=== PATIENT | male | born 1960 | race Caucasian/White ===

== ENCOUNTER 2020-10-22 10:41 | Outpatient (REF) | payer OTHER, SELFPAY ==
[2020-10-22 10:59] LABS: MANUAL DIFF FLAG NO
[2020-10-22 11:02] LABS: Glucose Urine UA NEG (NEG); Leukocyte Esterase Urine NEG (NEG); Nitrite Urine NEG (NEG); Urine Blood NEG (NEG); Urine Ketones NEG (NEG); Urine Protein NEG (NEG-TRACE)
[2020-10-22 11:02] LABS: Basophils Percent Auto 0.7 % (0-2); Eosinophils Absolute Auto 0.1 X10*3/uL (0.0-0.4); Eosinophils Percent Auto 2.4 % (0-4); Hematocrit 43.1 % (42-52); Hemoglobin 15.3 g/dl (14.0-18.0); Imm Gran Abs Auto 0.01 X10*3/uL (0.00-0.03); Imm Gran Pct Auto 0.2 % (0.0-0.4); Lymphocytes Absolute Auto 1.7 X10*3/uL (1.2-4.9); Mean Corpuscular HGB Conc 35.5 g/dl (31.0-36.0); Mean Corpuscular Hemoglobin 31.2 pg (27.0-33.0); Mean Platelet Volume 10.1 fL (9.4-12.4); Monocytes Absolute Auto 0.3 X10*3/uL (0.1-1.2); Monocytes Percent Auto 6.6 % (2-11); Neutrophils Absolute Auto 2.1 X10*3/uL (2.0-8.3); Neutrophils Percent Auto 50.1 % (45-73); Platelet Count 218 X10*3/uL (160-400); Red Cell Distribution Width 12.7 % (11.0-16.0); White Blood Count 4.1 X10*3/uL (4.8-10.8)
[2020-10-22 11:05] LABS: Appearance Urine CLEAR; Color Urine YELLOW
[2020-10-22 11:31] LABS: Alanine Aminotransferase 34 U/L (0-40); Albumin Level 4.2 g/dL (3.5-5.0); Alkaline Phosphatase 62 U/L (39-117); Anion Gap 12 (12-20); Aspartate Amino Transferase 27 U/L (5-37); Bilirubin Total 0.8 mg/dL (0.0-1.0); Blood Urea Nitrogen 20 mg/dL (9-16); Calcium 9.2 mg/dL (8.4-10.2); Carbon Dioxide 27 mmol/L (22-29); Chloride 106 mmol/L (96-108); Cholesterol 166 mg/dL; Estimated Glomerular Filt Rate 60; Glucose Random 105 mg/dL (60-115); HDL Cholesterol 43 mg/dL; LDL Cholesterol Calculated 95 mg/dl; Potassium 4.6 mmol/L (3.3-5.1); Sodium 140 mmol/L (135-145); Total Protein 6.4 g/dL (6.5-8.0); Triglycerides 143 mg/dL
[2020-10-22 11:56] LABS: Prostate Specific Antigen 0.84 ng/mL (<0.05-4.0)
== END 2020-10-22 10:42 | disposition home or self-care (01) ==
LOC: HO.LAB 10:41
PROVIDERS: PCP Internal Medicine; Visit Provider Internal Medicine
DX: Z00.00 Encounter for general adult medical examination without abnormal findings (principal); Z12.5 Encounter for screening for malignant neoplasm of prostate
CPT/HCPCS: 36415; 80053; 80061; 81003; 84153; 85025

== ENCOUNTER 2022-10-05 13:19 | Outpatient (REF) | payer OTHER, SELFPAY ==
--- NOTE | ~2022-10-05 | XR_ITS ---
EXAMINATION: XR LUMBOSACRAL SPINE CLINICAL INFORMATION: Pain COMPARISON: None available. TECHNIQUE: Three views of the lumbosacral spine. FINDINGS: There is mild 3 mm anterior subluxation of L4 with respect L5. There is mild anterior subluxation of L3 with respect to L2 measuring 3 mm. No fracture or dislocation. Disc space narrowing at L4-L5 and L5-S1. Mild degenerative spondylosis at L1-L2 and L2-L3. Lower lumbar spine facet arthritis. XR/XR lumbar spine 2-3V IMPRESSION: Degenerative changes.
--- NOTE | ~2022-10-05 | XR_ITS ---
EXAMINATION: Bilateral hand x-ray CLINICAL INFORMATION: Pain COMPARISON: Previous x-ray October 2017 TECHNIQUE: 3 views of each hand FINDINGS: Left: Bone alignment is normal. No fracture or dislocation. There is arthritis at the first HALF-WAY joint with joint space narrowing and osteophyte formation. There is arthritis at the IP joints, greatest DIP joint of the second finger and PIP joint of the fifth finger. Soft tissues are unremarkable. Right: Bone alignment is normal. No fracture or dislocation. There is mild osteoarthritis at the first HALF-WAY joint with joint space narrowing and osteophyte formation. There is mild osteoarthritis at the IP joints, greatest the DIP joint of the second and fifth fingers. Soft tissues are unremarkable. XR/XR hand LT min 3V IMPRESSION: Bilateral osteoarthritis.
--- NOTE | ~2022-10-05 | XR_ITS ---
EXAMINATION: Bilateral hand x-ray CLINICAL INFORMATION: Pain COMPARISON: Previous x-ray October 2017 TECHNIQUE: 3 views of each hand FINDINGS: Left: Bone alignment is normal. No fracture or dislocation. There is arthritis at the first RETIREMENT joint with joint space narrowing and osteophyte formation. There is arthritis at the IP joints, greatest DIP joint of the second finger and PIP joint of the fifth finger. Soft tissues are unremarkable. Right: Bone alignment is normal. No fracture or dislocation. There is mild osteoarthritis at the first RETIREMENT joint with joint space narrowing and osteophyte formation. There is mild osteoarthritis at the IP joints, greatest the DIP joint of the second and fifth fingers. Soft tissues are unremarkable. XR/XR hand RT min 3V IMPRESSION: Bilateral osteoarthritis.
== END 2022-10-05 13:20 | disposition home or self-care (01) ==
LOC: HO.XRAY 13:19
PROVIDERS: PCP Internal Medicine; Visit Provider Internal Medicine
DX: R60.0 Localized edema (principal); M54.9 Dorsalgia, unspecified; M79.641 Pain in right hand; M79.642 Pain in left hand
CPT/HCPCS: 72100; 73130

== ENCOUNTER 2022-10-06 10:33 | Outpatient (REF) | payer OTHER, SELFPAY ==
[2022-10-06 10:47] LABS: MANUAL DIFF FLAG NO
[2022-10-06 10:58] LABS: Basophils Percent Auto 0.5 % (0-2); Eosinophils Absolute Auto 0.1 X10*3/uL (0.0-0.4); Eosinophils Percent Auto 1.4 % (0-4); Hemoglobin 15.9 g/dl (14.0-18.0); Imm Gran Abs Auto 0.02 X10*3/uL (0.00-0.03); Imm Gran Pct Auto 0.5 % (0.0-0.4); Lymphocytes Absolute Auto 1.6 X10*3/uL (1.2-4.9); Lymphocytes Percent Auto 36.7 % (20-40); Mean Corpuscular HGB Conc 34.6 g/dl (31.0-36.0); Mean Corpuscular Hemoglobin 30.8 pg (27.0-33.0); Mean Platelet Volume 10.5 fL (9.4-12.4); Monocytes Absolute Auto 0.4 X10*3/uL (0.1-1.2); Monocytes Percent Auto 8.1 % (2-11); Neutrophils Absolute Auto 2.3 x10*3/uL (2.0-8.3); Neutrophils Percent Auto 52.8 % (45-73); Platelet Count 224 X10*3/uL (160-400); Red Blood Count 5.17 X10*6/uL (4.60-5.80); Red Cell Distribution Width 13.1 % (11.0-16.0); White Blood Count 4.3 X10*3/uL (4.8-10.8)
[2022-10-06 11:43] LABS: Erythrocyte Sedimentation Rate 2 MM/HR (0-15)
[2022-10-06 11:49] LABS: Alanine Aminotransferase 41 U/L (0-40); Albumin Level 4.3 g/dL (3.5-5.0); Alkaline Phosphatase 64 U/L (39-117); Anion Gap 14 (12-20); Aspartate Amino Transferase 29 U/L (5-37); Bilirubin Total 1.1 mg/dL (0.0-1.0); Blood Urea Nitrogen 19 mg/dL (9-16); C Reactive Protein 0.17 mg/dL (< or = 0.50); Calcium 9.7 mg/dL (8.4-10.2); Carbon Dioxide 27 mmol/L (22-29); Chloride 105 mmol/L (96-108); Cholesterol 169 mg/dL; Estimated Glomerular Filt Rate > 60; Glucose Random 105 mg/dL (60-115); HDL Cholesterol 38 mg/dL; LDL Cholesterol Calculated 102 mg/dl; Potassium 4.9 mmol/L (3.3-5.1); Rheumatoid Factor < 13.0 IU/mL (<15.0); Sodium 141 mmol/L (135-145); Total Protein 6.5 g/dL (6.5-8.0); Triglycerides 149 mg/dL
[2022-10-06 12:01] LABS: Thyroid Stimulating Hormone 1.06 uIU/mL (0.32-4.0)
[2022-10-09 15:53] LABS: Anti Nuclear Antibody Screen NEGATIVE (NEGATIVE)
== END 2022-10-06 10:34 | disposition home or self-care (01) ==
LOC: HO.LAB 10:33
PROVIDERS: PCP Internal Medicine; Visit Provider Internal Medicine
DX: Z00.00 Encounter for general adult medical examination without abnormal findings (principal); Z12.5 Encounter for screening for malignant neoplasm of prostate; M79.642 Pain in left hand; M79.641 Pain in right hand; R60.0 Localized edema; M54.9 Dorsalgia, unspecified
CPT/HCPCS: 36415; 80053; 80061; 84153; 84443; 85025; 85652; 86038; 86140; 86431

== ENCOUNTER 2022-12-14 12:07 | Outpatient (AMB) | payer OTHER, SELFPAY ==
--- NOTE | 2022-12-14 12:29 | A.OFFVIS_ITS ---
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 Left hand is worse.States numbness present for about 5 yrs and has worsen over time. Numbness comes and goes depending on his activity. Has pain in his joints and is not able to make a fist. Takes Alleve with no relief. Left hand pain by his CMC joint and has pain with thumb movement. States no prior treatment. EMG done years ago. 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 He complains of numbness in the thumb, index, and middle fingers of his hands. Symptoms intermittent, but daily, worse primarily with activity. He says this has been worsening over the last ~5 years. He complains of pain in all the joints of his fingers, and the base of his left thumb. He says he is not able to make a fist due to his pain. He has increased pain with movement of his left thumb. He says he had a NCS done in the past, but it was several years ago and he does not have a copy. 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/ [employer] Review of Systems Const All systems reviewed & are unremarkable except as noted in HPI and below Physical Exam Vital Signs: BMI result Body Mass Index 35.6 Const General: cooperative, healthy appearing and no acute distress Orientation/consciousness: patient oriented x3 HEENT Head: Yes normocephalic and Yes atraumatic Eyes EOM: EOMs intact bilaterally Resp Effort & Inspection: normal respiratory effort and able to speak in complete sentences Cardio Jugular venous distension: no JVD Skin General skin exam: turgor normal Rashes: no rashes Neuro General: patient oriented x3 Extrem Other: Evaluation of Bilateral Upper Extremity: The patient is alert, oriented, and in no acute distress Neuro: Median, Ulnar, Radial nerves motor and sensory intact and sensation is normal to the tips of all digits No thenar or intrinsic wasting Good APB muscle belly firing and good finger cross Vascular: Cap refill brisk ROM: Right hand: He initially could only bring the fingers of his right hand to about 3 cm from his palm. After working on range of motion exercises in clinic today he was then able to bring them actively to just about touching the tips to his palm, and then to put the hand flat on the table. Left hand: Left hand had some stiffness but not as bad as the right. Again we worked on range of motion exercises We worked on ROM exercises today in clinic for more than 15 minutes, before leaving clinic he could bring his fingers closed to a fist and back into full estension Skin: No lacerations or abrasions. General: No Ecchymosis. No Erythema or evidence of infection. He has some generalized arthritic changes. There is some mild enlargement of the 2nd and 3rd MCP joints bilaterally. Positive shoulder signs bilaterally. Radiographs: 3 views of the bilateral hands from 10/05/22 were reviewed by me today in clinic. They show no fractures or dislocations. In regards to his right hand: he has some basal joint arthritis and arthritic changes in the 2nd and 3rd MCP joints and several of his DIP joints In regards to his left hand: Basal joint OA, more mild 2nd and 3rd MCP joint OA and some DIP joint OA Psych Appearance: grossly normal Affect: normal affect Attitude: cooperative Office Procedures Fracture Care Details: No fracture, manual therapy for 15 minutes+ 9 1445 Fracture Billing Code: Fracture Billing Code Assessment & Plan Assessment & Plan (1) Osteoarthritis of hands, bilateral: Code(s): M19.041 - Primary osteoarthritis, right hand; M19.042 - Primary osteoarthritis, left hand (2) Osteoarthritis of carpometacarpal (CMC) joint of both thumbs: Code(s): M18.0 - Bilateral primary osteoarthritis of first carpometacarpal joints (3) Numbness in both hands: Code(s): R20.0 - Anesthesia of skin Plan Assessment & Plan: 1. Left hand osteoarthritis In multiple MCP & DIP joints & basal joint, more mild compared to the right Developing significant stiffness 2. 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 3. Bilateral hand numbness In the median nerve distribution Symptoms intermittent, but daily, worse with activity. No nighttime symptoms I ordered a NCS to assess for peripheral neuropathy vs cervical radiculopathy He will follow up when completed for review Scribed for Sandy Denny MD by Marcin Rios, hospital medical biller, on 12/14/22 at 1:15 PM, EST. Orders: Orders NE nerve conduction velocity Today R20.0 - Anesthesia of skin, R20.2 - Paresthesia of skin Coding Level of Care Code New Pt Level 4 (18450) Diagnoses Osteoarthritis of hands, bilateral M19.041; M19.042 Osteoarthritis of carpometacarpal (CMC) joint of both thumbs M18.0 Numbness in both hands R20.0 CPT Codes Fracture Care - Fracture Billing Code: Fracture Billing Code ([id number])
[2022-12-14 12:41] VITALS: BMI 35.6
== END 2022-12-14 13:39 | disposition home or self-care (01) ==
PROVIDERS: PCP Internal Medicine; Visit Provider Orthopaedic Surgery
DX: M19.041 Primary osteoarthritis, right hand (principal); M19.042 Primary osteoarthritis, left hand; M18.0 Bilateral primary osteoarthritis of first carpometacarpal joints; R20.0 Anesthesia of skin
CPT/HCPCS: 99204

== ENCOUNTER → 2022-12-14 12:07 | Outpatient (BNVA) | payer OTHER, SELFPAY | PROVIDERS: PCP Internal Medicine; Visit Provider Orthopaedic Surgery ==

== ENCOUNTER 2023-01-17 08:04 | Outpatient (REF) | payer OTHER, SELFPAY ==
--- NOTE | 2023-01-17 08:12 | EMG_ITS ---
Bilateral median and ulnar motor and sensory studies were performed. Bilateral radial sensory studies were performed and paraspinal muscles were tested with a needle. Bilateral median and lateral antecubital sensory studies were also performed. IMPRESSION: 1. Ognb-[id number] bilateral median neuropathy across carpal tunnel. 2. Djex-[id number] bilateral ulnar neuropathy across cubital tunnel. MD CRISTINE Joy/MERVINL / [id number]
== END 2023-01-17 08:05 | disposition home or self-care (01) ==
LOC: HO.NEURO 08:04
PROVIDERS: PCP Internal Medicine; Visit Provider Orthopaedic Surgery
DX: R20.0 Anesthesia of skin (principal); R20.2 Paresthesia of skin
CPT/HCPCS: 95860; 95886; 95907; 95913

== ENCOUNTER 2023-10-05 10:24 | Outpatient (REF) | payer OTHER, SELFPAY ==
[2023-10-05 10:35] LABS: MANUAL DIFF FLAG NO
[2023-10-05 11:02] LABS: Basophils Percent Auto 0.5 % (0-2); Eosinophils Absolute Auto 0.1 X10*3/uL (0.0-0.4); Eosinophils Percent Auto 1.2 % (0-4); Hematocrit 42.3 % (42.0-52.0); Hemoglobin 14.9 g/dl (14.0-18.0); Imm Gran Abs Auto 0.01 X10*3/uL (0.00-0.03); Imm Gran Pct Auto 0.2 % (0.0-0.4); Lymphocytes Absolute Auto 1.4 X10*3/uL (1.2-4.9); Mean Corpuscular HGB Conc 35.2 g/dl (31.0-36.0); Mean Corpuscular Hemoglobin 31.4 pg (27.0-33.0); Mean Corpuscular Volume 89.2 fL (80.0-98.0); Mean Platelet Volume 10.5 fL (9.4-12.4); Monocytes Absolute Auto 0.2 X10*3/uL (0.1-1.2); Monocytes Percent Auto 5.6 % (2-11); Neutrophils Absolute Auto 2.4 x10*3/uL (2.0-8.3); Neutrophils Percent Auto 59.5 % (45-73); Platelet Count 239 X10*3/uL (160-400); Red Blood Count 4.74 X10*6/uL (4.60-5.80); Red Cell Distribution Width 12.9 % (11.0-16.0); White Blood Count 4.1 X10*3/uL (4.8-10.8)
[2023-10-05 11:11] LABS: Appearance Urine Clear; Color Urine Yellow; Glucose Urine UA Negative (Negative); Leukocyte Esterase Urine Negative (Negative); Nitrite Urine Negative (Negative); PH 5.5 (5.0-9.0); Urine Blood Negative (Negative); Urine Ketones Negative (Negative); Urine Protein Negative (Neg-Trace)
[2023-10-05 12:09] LABS: Alanine Aminotransferase 30 U/L (0-40); Albumin Level 4.2 g/dL (3.5-5.0); Alkaline Phosphatase 62 U/L (39-117); Anion Gap 14 (12-20); Aspartate Amino Transferase 22 U/L (5-37); Bilirubin Total 0.5 mg/dL (0.0-1.0); Blood Urea Nitrogen 17 mg/dL (9-16); Calcium 9.9 mg/dL (8.4-10.2); Carbon Dioxide 25 mmol/L (22-29); Chloride 108 mmol/L (96-108); Cholesterol 153 mg/dL (<200); Estimated Glomerular Filt Rate > 60; Glucose Fasting 103 mg/dL (60-99); HDL Cholesterol 40 mg/dL (>40); LDL Cholesterol Calculated 90 mg/dL (<100); Potassium 4.3 mmol/L (3.3-5.1); Sodium 143 mmol/L (135-145); Total Protein 6.9 g/dL (6.5-8.0); Triglycerides 119 mg/dL (<150)
== END 2023-10-05 10:25 | disposition home or self-care (01) ==
LOC: HO.LAB 10:24
PROVIDERS: PCP Internal Medicine; Visit Provider Internal Medicine
DX: I25.10 Atherosclerotic heart disease of native coronary artery without angina pectoris (principal); Z12.5 Encounter for screening for malignant neoplasm of prostate; R03.0 Elevated blood-pressure reading, without diagnosis of hypertension
CPT/HCPCS: 36415; 80053; 80061; 81003; 84153; 85025

== ENCOUNTER 2024-10-27 16:22 | Outpatient (AMB) | payer OTHER, SELFPAY ==
--- NOTE | 2024-10-27 16:24 | A.OFFPC_ITS ---
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: No Accompanied by: Self / Same As Patient Allergies amoxicillin [AMOXICILLIN] Allergy (Intermediate, Verified 10/27/24 16:25) RASH, hives anesthesia Allergy (Unknown, Uncoded 12/14/22 12:40) vomiting Tobacco use date assessed: 10/27/24 Dental Screening Dental Screen Date: 10/27/24 Did you have a dental visit in the last 12 months?: Yes Did you have a dental problem in the last 6 months where you did not have access to dental care?: No HPI HPI Comments History of Present Illness Details 64-year-old male with history of hyperte nsion, history of renal neoplasm, , recurrent small-bowel obstruction, and chronic low back pain presents to the office today for management of chronic conditions and to establish care. His biggest complaint today is chronic low back pain with right-sided radiculopathy. Chronic low back pain with right-sided radiculopathy.-XR lumbar spine from 10/2022 shows multilevel degenerative changes with mild anterior subluxation of L4 with respect to L5 as well as mild anterior subluxation of L3 with respect to L2. There is disc space narrowing at L4-L5 and L5-S1 and mild degenerative spondylosis at L1-L2 and L2-L3. This has been ongoing for years and at times causes weakness in the lower extremity. He is able to ambulate without assistive device. No paresthesias, saddle anesthesia, bowel/bladder dysfunction. Secondary to his work schedule, works multiple jobs, he has been unable to attend physical therapy but does perform stretches at home. 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 History of malignant renal neoplasm-s/p right partial nephrectomy (2021). Following with [facility]. Renal function stable and within normal limits. Repeat ultrasounds normal. No recurrence. Recurrent mechanical bowel obstruction- has required hospilization in past, not since 2013 as well as decompression. Mechanical in nature. Reports managing this conservatively at home now if symptoms are not severe. He will experience generalized abdominal pain, but no nausea or vomiting with active bowel sounds and able to move bowels. Reports monitoring symptoms for 5 days, if no better will present to the ED. urologist- [facility], prostate cancer- following with [facility]. Most recent PSA 0.9. No LUTS ROS: General: No fevers, malaise, unintentional weight loss Cardiovascular: No chest pain, palpitations, or leg edema Respiratory: No shortness of breath, wheezing, cough : see hpi MSK: see hpi Neuro: see hpi Skin: No rashes or lesions EXAM: Constitutional - Awake and Alert, No apparent distress Eyes - PERRLA, EOMI Cardiovascular - S1S2, RRR, No edema Respiratory - Normal lung expansion, Normal respiratory effort, No respiratory distress, CTA bilaterally Extremities - no calf tenderness bilaterally, no swelling Musculoskeletal - midline tenderness to palpation throughout the lumbar spine with right-sided paraspinal tenderness into the right buttock. Positive right- sided straight leg raises Skin - Warm/Dry Neurological - Alert & oriented x3, 5/5 strength BUE and BLE, 2+ left side patellar reflex, 1+ right side patellar reflex, sensation intact Psychological - Appropriate affect [facility] Medical History (Updated 10/28/24 @ 12:27 by RUDDY Swartz) Class III morbid obesity with body mass index (BMI) of 40.0 to 49.9 Recurrent intestinal obstruction H/O renal cell cancer DDD (degenerative disc disease), lumbar Subluxation of lumbar vertebra Chronic right-sided lumbar radiculopathy Chronic low back pain Surgical History (Updated 10/28/24 @ 12:26 by RUDDY Swartz) History of partial nephrectomy Family History (Updated 10/27/24 @ 16:40 by Skye Beal MA) Mother No problems noted. Father No problems noted. 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 1. Little interest or pleasure in doing things: not at all 2. Feeling down, depressed, or hopeless: not at all 3. Trouble falling or staying asleep, or sleeping too much: not at all 4. Feeling tired or having little energy: not at all 5. Poor appetite or overeating: not at all 6. Feeling bad about yourself - or that you are a failure or have let yourself or your family down: not at all 7. Trouble concentrating on things, such as reading the newspaper or watching television: not at all 8. Moving or speaking so slowly that other people could have noticed. Or the opposite - being so fidgety or restless that you have been moving around a lot more than usual: not at all 9. Thoughts that you would be better off or of hurting yourself in some way: not at all Total score: 0 Source: Developed by Drs. Anibal Martin, Trish Fulton, Richi Cole and colleagues, with an educational guzman from [employer]. Thrive Questionnaire Date Thrive assessed: 10/27/24 I am a: Patient Within the past 12 months, did the food you bought not last and you didn't have the money to get more?: Never true Within the past 12 months, did you worry whether your food would run out before you got money to buy more?: Never true Do you have trouble paying for medicines?: No Do you have trouble getting transportation to medical appointments?: No Do you have trouble paying your heating and electricity bill?: No Do you have trouble taking care of your child, family member or friend?: No Do you have trouble with day-to-day activities such as bathing, preparing meals, shopping, managing finances, etc.?: No Are you currently unemployed and looking for a job?: No Are you interested in more education?: No THRIVE Score: 0 AUDIT C Alcohol Use Questionnaire (AUDIT-C) 1. How often do you have a drink containing alcohol?: Monthly or less 2. How many drinks containing alcohol do you have on a typical day when you are drinking?: 1 or 2 3. How often do you have six or more drinks on one occasion?: Less than monthly Total Score: 2 CESAR-7 AMB Questionnaire CESAR-7 Date CESAR - 7 assessed: 10/27/24 Feeling nervous, anxious, or on edge: 0 = Not at all Not being able to stop or control worryin = Not at all Worrying too much about different things: 0 = Not at all Trouble relaxin = Not at all Being so restless that it is hard to sit still: 0 = Not at all Becoming easily annoyed or irritable: 0 = Not at all Feeling afraid as if something awful might happen: 0 = Not at all Total CESAR-7 score (0-4 normal; 5-9 mild; 10-14 moderate; 15-21 severe): 0 Source: Developed by Drs. Anibal Martin, Trish Fulton, Richi Cole and colleagues, with an educational guzman from [employer]. Physical exam (Primary Care) Vital Signs: Last Vital Signs Temp 97.7 F 10/27/24 16:36 Pulse 68 10/27/24 16:36 BP 138/76 10/27/24 16:36 Pulse Ox 99 10/27/24 16:36 Oxygen Delivery Method Room Air 10/27/24 16:36 BMI result Body Mass Index 43.9 Tobacco/Smoking Status: Tobacco use Status Tobacco use date assessed 10/27/24 10/27/24 16:26 Patient Tobacco Use Status Never used Tobacco 10/27/24 16:26 e-Cigarette/Vaping Use Never Used 10/27/24 16:26 PHQ-9: PHQ-9 Score PHQ-9: Total score 0 10/28/24 10:00 Thrive Assessment: Date of Thrive Assessment Date Thrive assessed 10/27/24 10/27/24 16:26 Coding Level of Care Code New Pt Level 4 (16213) Complex EM visit Add On G2211 Diagnoses Chronic right-sided lumbar radiculopathy M54.16 Recurrent intestinal obstruction K56.609 Class III morbid obesity with body mass index (BMI) of 40.0 to 49.9 E66.813 Assessment & Plan Assessment & Plan (1) Chronic right-sided lumbar radiculopathy: Code(s): M54.16 - Radiculopathy, lumbar region Category: Medical Plan: XR lumbar spine ordered for characterization of osseous structures. Given persistent low back pain with persistent radicular symptoms and asymmetric patellar reflexes, MRI of the lumbar spine is ordered. Recommend ongoing PRN analgesia and gentle stretches at home. Recommend weight loss efforts. Patient is unable to attend physical therapy sessions or attend chiropractic session due to work schedule (2) Recurrent intestinal obstruction: Code(s): K56.609 - Unspecified intestinal obstruction, unspecified as to partial versus complete obstruction Category: Medical Plan: He will continue monitoring symptoms. He is educated on alarm symptoms. Prior surgical records reviewed. Manage diarrhea to prevent ileus (3) Class III morbid obesity with body mass index (BMI) of 40.0 to 49.9: Code(s): E66.813 - Obesity, class 3 Category: Medical Plan: Weight less efforts encouraged. Diet with increased protein, fruits, vegetables and lower in saturated fats and highly processed foods with overall decreased caloric intake. Recommend weight-bearing/resistance and cardiovascular activity. Plan Follow-up in the office in 6 months. Continue following with [facility]. X-ray of the lumbar spine and MRI of the lumbar spine ordered. Continue pain management as needed Orders: Orders XR lumbar spine 2-3V 10/27/24 G89.29 - Other chronic pain, M54.16 - Radiculopathy, lumbar region, M54.50 - Low back pain, unspecified
[2024-10-27 16:36] VITALS: BP 138/76; PULSE 68; TEMP 36.5; O2SAT 99; BMI 43.9
== END 2024-10-27 17:19 | disposition home or self-care (01) ==
LOC: HO.HMCHD 16:22
PROVIDERS: PCP Internal Medicine; Visit Provider Physician Assistant
DX: M54.16 Radiculopathy, lumbar region (principal); K56.609 Unspecified intestinal obstruction, unspecified as to partial versus complete obstruction; E66.813 Obesity, class 3

== ENCOUNTER → 2024-10-27 16:22 | Outpatient (BNVA) | payer OTHER, SELFPAY | PROVIDERS: PCP Internal Medicine; Visit Provider Physician Assistant ==

== ENCOUNTER 2025-03-11 10:56 | Outpatient (REF) | payer OTHER, SELFPAY ==
--- NOTE | ~2025-03-11 | XR_ITS ---
EXAMINATION: XR LUMBOSACRAL SPINE CLINICAL INFORMATION: M54.50 - Low back pain, unspecified COMPARISON: Previous x-ray October [address] of the abdomen and pelvis October 2018 TECHNIQUE: Three views of the lumbosacral spine. FINDINGS: Mild anterior subluxation of L3 and L4 with respect to L2 and L5. This is similar to previous exam. Bone alignment is otherwise normal. No fracture or dislocation. Multilevel degenerative spondylosis, degenerative disc disease and facet arthritis. Peripheral calcification with lucent center projects to the right of the L3 transverse process unchanged from prior exams. XR/XR lumbar spine 2-3V IMPRESSION: Multilevel degenerative spondylosis, degenerative disc disease and facet arthritis. Mild anterior subluxation of L3 on L4 with respect to L2 and L5 similar to prior exams probably from facet arthritis. Electronically signed by: Ttayana Martinez MD 03/11/2025 11:27 AM EDT
== END 2025-03-11 10:57 | disposition home or self-care (01) ==
LOC: HO.XRAY 10:56
PROVIDERS: PCP Physician Assistant; Visit Provider Physician Assistant
DX: M54.16 Radiculopathy, lumbar region (principal); G89.29 Other chronic pain; M54.50 Low back pain, unspecified
CPT/HCPCS: 72100

== ENCOUNTER → 2025-03-11 11:00 | Outpatient (BNV) | payer OTHER, SELFPAY | PROVIDERS: PCP Physician Assistant; Visit Provider Radiology Diagnostic Radiology | DX: M47.816 Spondylosis without myelopathy or radiculopathy, lumbar region (principal); M51.360 Other intervertebral disc degeneration, lumbar region with discogenic back pain only | CPT/HCPCS: 72100 ==

== ENCOUNTER 2025-05-29 14:10 | Outpatient (REF) | payer OTHER, SELFPAY ==
--- OUTSIDE RECORDS SUMMARY | 2025-05-29 14:17 | XMS_ITS | Patient Health Record ---
Author Organization [facility] Address [address] [place] [address] Care Team Providers Care Human Performance Consultant Name Role Phone Ga (RETIRED) José Miguel MARIE Primary Care Provide r Unavailable Hector Gibson Jr Unavailable Sixto Gillis MD Unavailable Unavailable Allergies Allergen (clinical drug ingredient) Drug/Non Drug Allergy documented on EMR Reaction Allergy Type Onset Date Status amoxicillin Amoxicillin Unknown Drug Allergy Act emilia Reason For Referral No Information Medications Medication SIG (Take, Route, Fr equency, Duration) Notes Start Date End Date Status 16.2 MG Tablet 1 tablet Orally Three times a day 10/20/2013 Active Ibuprofen prn Active Social History Social History Additional Details Category Social Info Options Details Miscellaneous: Marital status: 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 Problems Problem Type SNOMED Code ICD Code Onset Dates Problem Status W/U Status Risk Notes Problem Irritable bowel syndrome (83579641) Irritable bowel syndrome (564.1) Active confirmed Problem Small bowel obstruction (189013583) Small bowel obstruction (560.9) Active confirmed Plan Of Treatment No Information Insurance Providers Payer Name Payer Address Payer Phone Subscriber Number Group Number Insured Name Patient Relationship to Insured Coverage Start Date Coverage End Date [facility] [address] GALA MURILLO [id number] [phone] [id number] MANAN FUENTES Self - patient is the insured Medical (General) History Medical History History ICD Code renal carcinoma gallstones colon polyps Denies SD,DM,CVA,Lung disease Surgical History Surgery Date(Month/Year) lysis of adhesion partial nephrectomy, right cholecystectomy
== END 2025-05-29 14:11 | disposition home or self-care (01) ==
LOC: HO.MRI 14:10
PROVIDERS: PCP Physician Assistant; Visit Provider Student in an Organized Health Care Education/Training Program
DX: M54.16 Radiculopathy, lumbar region (principal)
CPT/HCPCS: 72148